=== PATIENT | female | born 1980 | race Caucasian/White ===

== ENCOUNTER 2018-04-07 02:59 | Emergency (ER) | payer OTHER ==
[~2018-04-07] VITALS: Ht 157.5 cm; Wt 81.6 kg
[~2018-04-07 02:59] MED LIST: AMOX500C25 PO; GLU500 PO; NOVN SUBQ
[2018-04-07 03:03] VITALS: BP 162/85
--- NOTE | 2018-04-07 03:03 | NUR ---
PATIENT BIBA TO ER BED 4
--- NOTE | 2018-04-07 03:16 | NUR ---
37 Y/O F BIBA ALS W/C/O FOR ALOC AND LOW BLOOD SUGAR. PER EMS BS WAS 44 ON SCENE, D10 GIVEN X 1. MED HX DM 1, HTN, DIALYSIS. PT ALTER, BUT ORIENTED X 2. BS 155 AT BEDSIDE. ER MADE AWARE.
--- NOTE | 2018-04-07 03:23 | NUR ---
PT ALERT AD ORIENTED X 4, CLEAR SPEECH, DOES NOT RECALL WHAT HAPPENED, STATES ADMINISTER THE USUAL INSULIN 70/30 15 UNITS AFTER DINNER LAST NIGHT AROUND 2200. FAMILY AT BEDSIDE. TUNA SANDWICH AND ORANGE JUICE GIVEN TO PT PER ER MD VERBAL ORDERS.
[2018-04-07] MEDS ORDERED: ACET-9500 PO (03:29)
[2018-04-07] MEDS ORDERED: NIFE60TE8 PO (03:29)
[2018-04-07] MEDS ORDERED: CHLO25TA33 PO (03:29)
[2018-04-07] MEDS ORDERED: ASPI-1173 PO (03:29)
[2018-04-07] MEDS ORDERED: PHO667 PO (03:29)
[2018-04-07] MEDS ORDERED: DOCU-299 PO (03:29)
[2018-04-07] MEDS ORDERED: LOSA50TA1 PO (03:29)
[2018-04-07] MEDS ORDERED: VITD1000 PO (03:29)
[2018-04-07] MEDS ORDERED: HYDR-1098 PO (03:29)
[2018-04-07] MEDS ORDERED: VIT1TABL47 PO (03:29)
[2018-04-07] MEDS ORDERED: INSU10SU8 SUBQ (03:29)
[2018-04-07] MEDS ORDERED: ATOR20TA PO (03:29)
[2018-04-07] MEDS ORDERED: FURO-572 PO (03:29)
[2018-04-07] MEDS ORDERED: MULT-1469 PO (03:29)
[2018-04-07] MEDS ORDERED: METO100T14 PO (03:29)
[2018-04-07 03:30] LABS: ANION GAP 22.8 (8-16); CARBON DIOXIDE 26.3 mmol/L (21-32); POTASSIUM 5.1 mmol/L (3.5-5.1)
[2018-04-07 03:37] LABS: CREATININE 12.8 mg/dL (0.6-1.3)
--- NOTE | 2018-04-07 03:41 | NUR ---
PT RESTING IN BED, FAMILY AT BEDSIDE, NO S/S OF DISTRESS NOTED AT THE MOMENT. WILL CONT TO MONITOR.
[2018-04-07] MEDS ORDERED: SODIUM POLYSTYRENE 15 GM/60 ML UDBTL PO ONE (03:45)
[2018-04-07 03:57] VITALS: BP 149/90
--- NOTE | 2018-04-07 03:58 | NUR ---
Patient discharged with v/s stable. Written and verbal after care instructions given and explained. Patient verbalized understanding. Wheel Chair Assisted with by EMT. All questions addressed prior to discharge. Advised to follow up with PMD OR RETURN TO ER IF CONDITION WORSENS.
== END 2018-04-07 03:53 | disposition home or self-care (01) ==
LOC: MED 02:59
DX: E11.649 Type 2 diabetes mellitus with hypoglycemia without coma (principal); I12.0 Hypertensive chronic kidney disease with stage 5 chronic kidney disease or end stage renal disease; N18.6 End stage renal disease; E11.22 Type 2 diabetes mellitus with diabetic chronic kidney disease; Z99.2 Dependence on renal dialysis; Z79.899 Other long term (current) drug therapy; Z79.4 Long term (current) use of insulin
CPT/HCPCS: 36415; 80048; 93005; 99285

== ENCOUNTER 2018-05-10 23:35 | Emergency (ER) | payer OTHER ==
[~2018-05-10] VITALS: Ht 157.5 cm; Wt 83.9 kg
[~2018-05-10 23:35] MED LIST changes: +ACET-9500 PO; -AMOX500C25 PO; +ASPI-1173 PO; +ATOR20TA PO; +CHLO25TA33 PO; +DOCU-299 PO; +FURO-572 PO; -GLU500 PO; +HYDR-1098 PO; +INSU10SU8 SUBQ; +LOSA50TA1 PO; +METO100T14 PO; +MULT-1469 PO; +NIFE60TE8 PO; -NOVN SUBQ; +PHO667 PO; +VIT1TABL47 PO; +VITD1000 PO
[2018-05-10 23:47] VITALS: BP 185/94
--- NOTE | 2018-05-10 23:50 | NUR ---
TO BED # 4 VIA W/C, REPORT GIVEN TO JEREMY KAY
--- NOTE | 2018-05-11 | NUR ---
PT C/O LOW BLOOD SUGAR , SHE WAS GIVEN WATER WITH SUGAR 30 MINUTES AGO, BS NOW 98 MG/D, DENIES N/V/D; SKIN IS INTACT, PINK/WARM/DRY; AAOX4, PERRL, WITH EVEN AND STEADY GAIT; LUNGS CLEAR BL, BREATHING UNLABORED; HR EVEN AND REGULAR, BL PERIPHERAL PULSES PRESENT; BS ACTIVE X4, NO TENDERNESS TO PALPATION, NO HEPATOSPLENOMEGALLY PALPATED, RESONANT TO PERCUSSION; PT DENIES ANY FEVER, CP, SOB, OR COUGH AT THIS TIME; PT STATES 0/10 PAIN AT THIS TIME; VSS; PATIENT POSITIONED FOR COMFORT; HOB ELEVATED; BEDRAILS UP X2; BED DOWN.
[2018-05-11 01:06] VITALS: BP 175/98
--- NOTE | 2018-05-11 01:06 | NUR ---
Patient discharged with v/s stable. Written and verbal after care instructions given and explained. Patient verbalized understanding. Ambulatory with steady gait. All questions addressed prior to discharge. Advised to follow up with PMD.
== END 2018-05-11 01:06 | disposition home or self-care (01) ==
LOC: MED 23:35
DX: E11.649 Type 2 diabetes mellitus with hypoglycemia without coma (principal); R53.1 Weakness; I10 Essential (primary) hypertension; Z79.4 Long term (current) use of insulin; Z79.82 Long term (current) use of aspirin; Z79.899 Other long term (current) drug therapy
CPT/HCPCS: 82948; 99283

== ENCOUNTER 2018-05-11 11:32 | Inpatient (IN) | payer OTHER ==
[~2018-05-11] VITALS: Ht 157.5 cm; Wt 79.8 kg
[2018-05-11 11:35] VITALS: BP 171/81
--- NOTE | 2018-05-11 11:49 | NUR ---
PATIENT WHEELCHAIR ASSISTED TO BED 5.
--- NOTE | 2018-05-11 11:55 | NUR ---
PT. CAME INTO THE ED DUE TO ABD PAIN SINCE 99 THIS MORNING. PT STATES " THIS MORNING MY STOMACH HURTS A LOT AND I HAVE HAD NAUSEA AND VOMITING AND DIAHRRHEA". 07/29 PAIN IN LOWER ABD DESCRIBED SHARP AND RADIATING ALL OVER ABD. ABD IS ROUND AND SOFT AND TENDER TO TOUCH. N/V/D SINCE 99 THIS MORNING. NO FEVER. PT. HAS R UPPER CHEST DIALYSIS SHUNT PRESENT. PT. IS AWAKE AND ABLE TO ANSWER QUESTIONS. PT HAS DIALYSIS , , AND FRIDAY. FAMILY MEMBER AT BEDSIDE. WILL CONTINUE TO MONITOR. ER MD NOTIFIED. SAFETY PRECAUTIONS IMPLEMENTED.
[2018-05-11] MEDS ORDERED: PROMETHAZINE 25 MG/ML VIAL IM ONE (12:35)
[2018-05-11] MEDS ORDERED: MORPHINE SULFATE 4 MG/ML SYR IVP ONE (12:35)
[2018-05-11] MEDS ORDERED: ONDANSETRON 4 MG/2 ML VIAL IVP ONE ×2 (12:35→14:30)
--- NOTE | 2018-05-11 12:59 | NUR ---
PT.UNABLE TO PROVIDE URINE SAMPLE, PT. STATES I DO NOT PEE I AM A DIALYSIS PATIENT. ER MD SALAZAR NOTIFIED.
--- NOTE | 2018-05-11 13:08 | NUR ---
ULTRASOUND AT BEDSIDE.
[2018-05-11 13:31] LABS: WHITE BLOOD COUNT (AUTO) 12.9 K/uL (4.8-10.8)
[2018-05-11 13:32] LABS: BASOPHILS % (AUTO) 1.8 % (0.0-2.0); EOSINOPHILS % (AUTO) 1.4 % (0.0-4.0); HEMATOCRIT 38.9 % (36-48); HEMOGLOBIN 12.7 g/dL (12.0-16.0); LYMPHOCYTES # (AUTO) 1.1 K/uL (2.5-16.5); LYMPHOCYTES % (AUTO) 8.9 % (20.5-51.1); MEAN CORPUSCULAR HEMOGLOBIN 30 pg (27-31); MEAN CORPUSCULAR HGB CONC 33 g/dL (33-37); MEAN CORPUSCULAR VOLUME 91.9 fL (80-94); NEUTROPHILS # (AUTO) 10.9 K/uL (1.8-7.7); NEUTROPHILS % (AUTO) 83.9 % (42.2-75.2); PLATELET COUNT (AUTO) 237 K/uL (140-450); RED BLOOD CELL COUNT(AUTO) 4.23 MIL/uL (4.20-5.40); RED CELL DISTRIBUTION WIDTH 17.3 % (11.6-13.7)
[2018-05-11 13:33] LABS: BASOPHILS # (AUTO) 0.2 K/uL (0.00-0.22); EOSINOPHILS # (AUTO) 0.2 K/uL (0-0.4); MONOCYTES # (AUTO) 0.5 K/uL (0.8-1.0)
[2018-05-11 13:41] LABS: ACETONE, SERUM NEGATIVE (NEGATIVE)
[2018-05-11 13:54] LABS: MAGNESIUM 2.8 mg/dL (1.8-2.4)
[2018-05-11 14:13] LABS: ALBUMIN 4.1 g/dL (3.4-5.0); ANION GAP 25.3 (8-16); CARBON DIOXIDE 21.9 mmol/L (21-32); TOTAL BILIRUBIN 0.3 mg/dL (0.0-1.0)
--- NOTE | 2018-05-11 14:20 | NUR ---
ARLENE FROM LAB CALLED TO REPORT CRITICAL LAB OF K:6.2, CREATININE:11.9, BUN: 39
[2018-05-11 14:21] LABS: CREATININE 11.9 mg/dL (0.6-1.3); POTASSIUM 6.2 mmol/L (3.5-5.1)
[2018-05-11] MEDS ORDERED: DEXTROSE 50% 50 ML SYR IVP ONE (14:30)
[2018-05-11] MEDS ORDERED: SODIUM POLYSTYRENE 15 GM/60 ML UDBTL PR ONE (14:30)
[2018-05-11] MEDS ORDERED: CALCIUM GLUCONATE 10% 1000 MG/10 ML VIAL IVP ONE (14:30)
[2018-05-11] MEDS ORDERED: INSULIN REGULAR, HUMAN 100 UNIT/ML VIAL IVP ONE (14:30)
[2018-05-11] MEDS ORDERED: ALBUTEROL 0.083% 2.5 MG/3 ML NEBU INH ONE (14:30)
[2018-05-11] MEDS ORDERED: SODIUM BICARBONATE 8.4% PFS 50 MEQ/50 ML SYR IVP ONE (14:30)
[2018-05-11] MEDS ORDERED: CALCIUM CHLORIDE 10% 100 MG/ML SYR IVP ONE (14:50)
[2018-05-11] MEDS ORDERED: fentaNYL 0.05 MG/ML VIAL IVP ONE (15:30)
[2018-05-11] MEDS ORDERED: METOCLOPRAMIDE 10 MG/2 ML INJ VIAL IVP ONE (15:30)
[2018-05-11] MEDS ORDERED: LORazepam 2 MG/ML VIAL IVP PRN (15:35)
[2018-05-11] MEDS ORDERED: ACETAMINOPHEN 325 MG TAB PO PRN (15:35)
--- NOTE | 2018-05-11 16:02 | NUR ---
PT. RESTING COMFORTABLY IN BED , RR EVEN AND UNLABORED. MOTHER AND FAMILY MEMBER AT BEDSIDE. BED IN LOWEST POSITION WILL CONTINUE TO MONITOR.
--- NOTE | 2018-05-11 16:36 | NUR ---
Patient will be admitted to care of DR. LORENZO . Admited to ICU. Will go to room #2 . Belongings list completed. Report to RAHUL ANDRE .
--- NOTE | 2018-05-11 16:36 | NUR ---
RECEIVED REPORT FROM CUSTOMER DEVELOPMENT MANAGER FOR CONTINUITY OF CARE. PATIENT IS AAOX4, ABLE TO FOLLOW SIMPLE COMMANDS AND MAKE NEEDS KNOWN. PATIENT HAS PERIPHERAL IV SITE TO LEFT AC, 20 GAUGE AND RIGHT UPPER CHEST SHUNT FOR DIALYSIS. SHE IS ON ROOM AIR, ST ON MONITOR. DENIES ANY PAIN OR NAUSEA AT THIS TIME. HOB IS IN SEMI-CARABALLO POSITION, NO SIGNS OF DISTRESS NOTED AT THIS TIME. CALL LIGHT WITHIN REACH, WILL CONTINUE TO MONITOR.
[2018-05-11] MEDS ORDERED: NON-FORMULARY ITEM (Hydralazine HCl (Hydralazine Hcl) 25 MG) PO SCH (17:00)
[2018-05-11] MEDS: hydrALAZINE 25 MG TAB PO SCH (17:25)
[2018-05-11] MEDS ORDERED: metroNIDAZOLE 500 MG/NS PREMIX 100 ML IV SCH (17:29)
[2018-05-11] MEDS ORDERED: CIPROFLOXACIN 250 MG TAB PO SCH (17:30)
--- NOTE | 2018-05-11 17:45 | NUR ---
DR. LORENZO AT BEDSIDE, SEEN AND EXAMINED PATIENT. WILL FOLLOW UP WITH ORDERS. ORDER FOR FNS, WOUND CONSULTS AND WOUND CULTURE OBTAINED.
--- NOTE | 2018-05-11 17:50 | NUR ---
DR POZO CALLED, UPDATED OF PATIENT'S STATUS. HE STATED HE WILL COME BY LATER TO SEE THE PATIENT.
[2018-05-11] MEDS ORDERED: DEXTROSE 50% 50 ML SYR IVP PRN (18:30)
--- NOTE | 2018-05-11 18:42 | NUR ---
DR. POZO AT BEDSIDE SEEN AND EXAMINED PATIENT. WILL FOLLOW UP WITH ORDERS.
--- NOTE | 2018-05-11 19:04 | NUR ---
ENDORSED BEDSIDE REPORT FOR CONTINUITY OF CARE, PATIENT PRESENTS NO SIGNS OF DISTRESS AT THIS TIME.
--- NOTE | 2018-05-11 19:31 | NUR ---
RECEIVED PT FROM DAY NURSE, NO ACUTE DISTRESS. WILL CONTINUE TO MONITOR.
--- NOTE | 2018-05-11 19:32 | NUR ---
PT AWAKE ASLEEP AROUSABLE IN BED. PT AOX4 NO S/S OF DISTRESS NOTED. PT DENIES PAIN N/V @ THIS TIME. LUNGS CLEAR TO AUSCULTATION. S1 S2 NO EDEMA NOTED. +2 BILATERAL UPPER AND LOWER EXTREMITIES. R UPPER CHEST HD CATH PRESENT DRESSING CDI. ABD SOFT NON DISTENDED. PT ANURIC. SKIN NON INTACT, WOUND TO L OTE PRESENT WITH DRESSING CDI. IV TO L AC 20G SL PATENT. NO ACUTE DISTRESS NOTED. WILL CONTINUE TO MONITOR.
[2018-05-11 20:00] VITALS: BP 187/90
[2018-05-11] MEDS: METOPROLOL 50 MG TAB PO SCH (20:21)
[2018-05-11] MEDS ORDERED: ONDANSETRON 4 MG/2 ML VIAL IVP PRN (20:25)
[2018-05-11] MEDS: BLOOD GLUCOSE MONITORING 1 DEV DEV FS SCH (21:18)
[2018-05-11] MEDS: cloNIDine 0.1 MG TAB PO PRN (21:19)
[2018-05-11] MEDS: INSULIN LISPRO SLIDING SCALE 100 UNITS/ML VIAL SUBQ PRN (21:22)
--- NOTE | 2018-05-11 22:00 | NUR ---
PT HELPED UP TO BEDSIDE SOUMYA WILL CONTINUE TO MONITOR
[2018-05-12] VITALS (8 sets, daily range): BP systolic 117–169; BP diastolic 71–89
--- NOTE | 2018-05-12 | NUR ---
PT ASLEEP AROUSABLE NO S/S OF DISTRESS NOTED. WILL CONTINUE TO OBSERVE
[2018-05-12] MEDS: cloNIDine 0.1 MG TAB PO PRN ×2 (00:06→05:51)
--- NOTE | 2018-05-12 02:00 | NUR ---
PT HAD X1 LIQUID STOOL, PT HAD BATH, LINEN CHANGED.
--- NOTE | 2018-05-12 04:00 | NUR ---
X1 LARGE LIQUID STOOL, DARK BROWN IN COLOR. WILL CONTINUE TO MONITOR
[2018-05-12] MEDS: HYDROcodone/APAP 5/325 MG 1 TAB TAB PO PRN ×4 (04:07→21:30)
[2018-05-12] MEDS: BLOOD GLUCOSE MONITORING 1 DEV DEV FS SCH ×4 (06:39→21:29)
[2018-05-12] MEDS: INSULIN LISPRO SLIDING SCALE 100 UNITS/ML VIAL SUBQ PRN ×4 (06:42→21:31)
--- NOTE | 2018-05-12 07:29 | NUR ---
REPORT GIVEN TO DAY SHIFT. ORDERS ENDORSED FOR CONTINUITY OF CARE.
--- NOTE | 2018-05-12 07:29 | NUR ---
RECEIVED REPORT FROM SERVICER COIN MACHINES RN. PT RESTING IN BED AWAKE, VERBAL. SR ON MONITOR. SKIN DRY AND WARM TO TOUCH. PT STATED SHE CAN SEE A LITTLE. LEFT AC 20 G, INTACT. NO SWELLING AT SITE. LUNGS CLEAR ON AUSCULTATION. ABDOMEN SOFT ROUND AND NON-TENDER. ACTIVE BOWEL SOUND. DIABETIC FOOT ULCER NOTED ON LEFT GREAT TOE, COVERED WITH DRESSING. INTACT DRESSING. NO ACTIVE DRAINAGE AT SITE. TATOOS NOTED ON BACK OF NECK AND LEFT LOWER EXTREMITY. CALL LIGHT WITHIN REACH, BED IN LOW POSITION LOCKED. WILL CONTINUE TO MONITOR.
[2018-05-12] MEDS ORDERED: NON-FORMULARY ITEM (Aspirin (Aspirin EC) 81 MG) PO SCH (09:00)
[2018-05-12] MEDS ORDERED: FOAM DRESSING TP SCH (09:00)
[2018-05-12] MEDS ORDERED: THERAHONEY WOUND DRESSING TP SCH (09:00)
[2018-05-12] MEDS ORDERED: CHLORTHALIDONE 50 MG PO SCH (09:00)
[2018-05-12] MEDS ORDERED: metroNIDAZOLE 500 MG/NS PREMIX 100 ML IV SCH (09:00)
[2018-05-12 09:24] LABS: HEMOGLOBIN 11.8 g/dL (12.0-16.0); RED BLOOD CELL COUNT(AUTO) 3.91 MIL/uL (4.20-5.40)
[2018-05-12 09:25] LABS: HEMATOCRIT 35.9 % (36-48); MEAN CORPUSCULAR VOLUME 91.9 fL (80-94)
[2018-05-12 09:26] LABS: MEAN CORPUSCULAR HEMOGLOBIN 30 pg (27-31); MEAN CORPUSCULAR HGB CONC 33 g/dL (33-37); PLATELET COUNT (AUTO) 212 K/uL (140-450); RED CELL DISTRIBUTION WIDTH 18.2 % (11.6-13.7)
--- NOTE | 2018-05-12 10:15 | NUR ---
PT ON DIALYSIS. NO ACUTE DISTRESS NOTED. NO CHANGE IN LOC. HELD ALL ANTIHYPERTENSIVE MEDICATIONS INCLUDING LASIX AND METRONIDAZOLE PER DIALYSIS NURSE AT THIS TIME. MEDICINES WILL BE ADMINISTERED AFTER COMPLETING DIALYSIS.
[2018-05-12] MEDS: ECOTRIN 81 MG TABEC PO SCH (10:21)
--- NOTE | 2018-05-12 10:26 | NUR ---
PATIENT HAS BEEN SCREENED AND CATEGORIZED HIGH NUTRITION RISK. PATIENT WILL BE SEEN WITHIN 1-2 DAYS OF ADMISSION. 05/12/18 05/13/[address]
[2018-05-12] MEDS ORDERED: PROBIOTIC SCREEN 1 EA MISC MC PRN (11:00)
[2018-05-12 11:37] LABS: ANION GAP 18.5 (8-16); CARBON DIOXIDE 25.9 mmol/L (21-32); POTASSIUM 5.4 mmol/L (3.5-5.1); TOTAL BILIRUBIN 0.2 mg/dL (0.0-1.0)
--- NOTE | 2018-05-12 11:58 | NUR ---
CM NOTE INITIAL REVIEW FAXED TO [facility] [phone] FARHANA # [phone]
[2018-05-12 12:14] LABS: CREATININE 14.1 mg/dL (0.6-1.3)
[2018-05-12] MEDS: hydrALAZINE 25 MG TAB PO SCH ×3 (13:00→17:29)
[2018-05-12] MEDS ORDERED: CHLORTHALIDONE 50 MG TAB PO SCH (13:00)
[2018-05-12] MEDS ORDERED: HYDRAGUARD CREAM TP SCH (13:00)
[2018-05-12] MEDS: NIFEdipine 60 MG TABER PO SCH (13:23)
[2018-05-12] MEDS: LOSARTAN 50 MG TAB PO SCH (13:24)
[2018-05-12] MEDS: FUROSEMIDE 20 MG TAB PO SCH (13:25)
[2018-05-12] MEDS: METOPROLOL 50 MG TAB PO SCH ×2 (13:25→21:30)
--- NOTE | 2018-05-12 13:30 | NUR ---
ADMINISTERED SCHEDULED MEDICATION INCLUDING 0900 AM ANTIHYPERTENSIVE MEDICATION. PT TOLERATING WELL. WILL CONTINUE TO MONITOR.
[2018-05-12 13:42] LABS: LYMPHOCYTES % (MANUAL) 12 % (20-46)
[2018-05-12 13:43] LABS: MONOCYTES % (MANUAL) 7 % (5-12)
--- NOTE | 2018-05-12 18:50 | NUR ---
PT RESTING IN BED COMFORTABLY. NO ACUTE DISTRESS NOTED. NO CHANGE IN LOC. WILL CONTINUE TO MONITOR.
--- NOTE | 2018-05-12 19:20 | NUR ---
RECEIVED REPORT FROM MORNING SHIFT RAHUL MELARA. PATIENT AAO X 4, VERBALLY RESPONSIVE, ABLE TO MAKE NEEDS KNOWN. BILATERAL LUNGS SOUND CLEAR, ON ROOM O2 SAT 95% NOTED. NO ACUTE DISTRESS NOTED. SR ON MONITOR.PERIPHERAL IV LINE TO LEFT AC 20 G, INTACT AND PATENT. ABDOMEN SOFT ROUND AND NON-TENDER. ACTIVE BOWEL SOUND PRESENT TO ALL 4 QUADS. SKIN IS WARM TO TOUCH. DIABETIC FOOT ULCER TO LEFT GREAT TOE, COVERED WITH DRESSING. DENIES PAIN OR DISCOMFORT AT THIS TIME. HOB ELEVATED, BED IN LOW POSITION. CALL LIGHT WITHIN REACH. WILL CONTINUE TO MONITOR.
--- NOTE | 2018-05-12 19:35 | NUR ---
REPORT GIVEN TO PSYCHOLOGICAL EXAMINER RN FOR CONTINUITY OF CARE. PT ON STABLE CONDITION.
[2018-05-12] MEDS ORDERED: CIPROFLOXACIN 250 MG TAB PO SCH (21:00)
--- NOTE | 2018-05-12 21:30 | NUR ---
ADMINISTERED SCHEDULED ANTIHYPERTENSIVE MED AND PAIN MEDICATION AT THIS TIME. PATIENT COMPLAINED ABOUT ABDOMINAL CRAMPING PAIN 04/28. TOLERATED WELL. WILL CONTINUE TO MONITOR.
--- NOTE | 2018-05-12 23:00 | NUR ---
PATIENT IN ASLEEP, AROUSABLE TO VOICE, NO ACUTE DISTRESS NOTED. O2 SAT 88%~90% NOTED, APPLIED O2 2L/M VIA NC. DENIES PAIN AT THIS TIME.
[2018-05-13] VITALS (7 sets, daily range): BP systolic 142–164; BP diastolic 75–86
--- NOTE | 2018-05-13 01:00 | NUR ---
PATIENT IN ASLEEP AT THIS TIME, NO ACUTE DISTRESS NOTED. DENIES PAIN. WILL CONTINUE TO MONITOR.
--- NOTE | 2018-05-13 03:00 | NUR ---
PATIENT IN SLEEP, AROUSABLE TO VOICE. DENIES PAIN. NO ACUTE DISTRESS NOTED. WILL CONTINUE TO MONITOR.
--- NOTE | 2018-05-13 05:30 | NUR ---
NO ACUTE DISTRESS NOTED. DENIES PAIN AT THIS TIME. BP 150'S/ 80'S NOTED. SR ON THE MONITOR.
[2018-05-13] MEDS: HYDROcodone/APAP 5/325 MG 1 TAB TAB PO PRN (07:21)
--- NOTE | 2018-05-13 07:21 | NUR ---
REPORT GIVEN TO MORNING SHIFT NURSE FOR CONTINUITY OF CARE.
--- NOTE | 2018-05-13 07:30 | NUR ---
RECEIVED PT FROM PM NURSE. PT AWAKE, ALERT. ON O2 NC 2L/MIN. NO S/S OF RESPIRATORY DISTRESS NOTED. BEDSIDE MONITOR SHOWS SR, PT UNABLE TO SEE CLEARLY DUE TO DM. PT HAS IV TO LEFT AC # 20, SALINE LOCKED. PT ALSO HAS PERMA CATH TO RIGHT UPPER CHEST FOR HD. PT ABLE TO AMBULATE TO BEDSIDE COMMODE, CALL LIGHT IN REACH, WILL CONTINUE TO MONITOR.
[2018-05-13] MEDS: INSULIN LISPRO SLIDING SCALE 100 UNITS/ML VIAL SUBQ PRN ×2 (07:47→12:00)
[2018-05-13] MEDS: BLOOD GLUCOSE MONITORING 1 DEV DEV FS SCH ×2 (07:47→11:54)
--- NOTE | 2018-05-13 08:30 | NUR ---
PT AMBULATED TO BEDSIDE COMMODE WITHOUT ACCIDENT.
[2018-05-13] MEDS: NIFEdipine 60 MG TABER PO SCH (08:55)
[2018-05-13] MEDS: hydrALAZINE 25 MG TAB PO SCH (08:56)
[2018-05-13] MEDS: ECOTRIN 81 MG TABEC PO SCH (08:57)
[2018-05-13] MEDS: FUROSEMIDE 20 MG TAB PO SCH (08:58)
[2018-05-13] MEDS: LOSARTAN 50 MG TAB PO SCH (08:58)
[2018-05-13] MEDS: METOPROLOL 50 MG TAB PO SCH (08:59)
[2018-05-13] MEDS ORDERED: CHLORTHALIDONE 50 MG TAB PO SCH (09:00)
[2018-05-13] MEDS ORDERED: LACTOBACILLUS RHAMNOSUS GG 1 EACH CAP PO SCH (09:00)
[2018-05-13] MEDS ORDERED: ACET-9525 PO (09:04)
[2018-05-13 09:22] LABS: HEPATITIS A ANTIBODY IGM Negative (Negative); HEPATITIS B CORE AB TOTAL Negative (Negative); HEPATITIS B SURFACE ANTIBODY Non Reactive (.); HEPATITIS B SURFACE ANTIGEN Negative (Negative)
[2018-05-13 09:52] LABS: HEMATOCRIT 31.5 % (36-48); HEMOGLOBIN 10.1 g/dL (12.0-16.0); MEAN CORPUSCULAR HEMOGLOBIN 30 pg (27-31); MEAN CORPUSCULAR HGB CONC 32 g/dL (33-37); MEAN CORPUSCULAR VOLUME 92.2 fL (80-94); NEUTROPHILS % (AUTO) 80.6 % (42.2-75.2); PLATELET COUNT (AUTO) 167 K/uL (140-450); RED BLOOD CELL COUNT(AUTO) 3.41 MIL/uL (4.20-5.40); RED CELL DISTRIBUTION WIDTH 17.7 % (11.6-13.7); WHITE BLOOD COUNT (AUTO) 14.3 K/uL (4.8-10.8)
[2018-05-13 09:53] LABS: BASOPHILS % (AUTO) 0.7 % (0.0-2.0); EOSINOPHILS % (AUTO) 3.3 % (0.0-4.0); LYMPHOCYTES % (AUTO) 9.3 % (20.5-51.1); MONOCYTES % (AUTO) 6.1 % (1.7-9.3)
[2018-05-13 10:23] LABS: ALBUMIN 2.5 g/dL (3.4-5.0); ANION GAP 16.7 (8-16); CARBON DIOXIDE 25.9 mmol/L (21-32); POTASSIUM 4.6 mmol/L (3.5-5.1); TOTAL BILIRUBIN 0.2 mg/dL (0.0-1.0)
[2018-05-13 10:26] LABS: CREATININE 11.1 mg/dL (0.6-1.3)
--- NOTE | 2018-05-13 10:41 | NUR ---
PAGEKathy CHEN FOR CREATININE 11.1, NO NEW ORDER RECEIVED, PT HAS HD TOMORROW. Addendum: 05/13/18 at 1352 by Leticia Selby RN DR. CHATA RG AWARE HEPATITIS A Ab POSITIVE .
[2018-05-13] MEDS: cloNIDine 0.1 MG TAB PO PRN (11:39)
--- NOTE | 2018-05-13 11:50 | NUR ---
WOUND CARE EVALUATION NOTE REASON FOR EVALUATION: DIABETIC ULCER SKIN ASSESSMENT DONE ON THIS 37 Y/O FEMALE PATIENT FROM HOME TO [facility], WITH INITIAL DIAGNOSIS OF ABDOMINAL PAIN. PAST MEDICAL HX INCLUDES TYPE 1 DM, HTN, ESRD ON HD. ALL ABOVE INFORMATION WAS OBTAINED FROM THE PT. AND ADMISSION H&P. PT. IS AAX4. LABS ARE WBC 14.3, H/H 10.1/31.5, GLUCOSE 203 AND ALBUMIN 2.5. PATIENT IS WELL HYDRATE, AMBULATED TO BEDSIDE COMMODE. SKIN WARN AND DRY, BLE HAIR GROWTH, BILATERAL PEDAL PULSES PRESENT AND STRONG. NAILS SHORT AND CLEAN WITH NAIL BHUTANESE ON. INITIAL PLAN OF CARE AND FOOT/ WOUND CARE EDUCATION TEACH TO PT. AND PT VERBALIZES UNDERSTANDING. PLAN OF CARE DISCUSSED WITH PRIMARY RN. PT. WAS INSTRUCTED TO FOLLOW UP OUTPATIENT PODIATRY SERVICE REGULAR. ALL RISKS AND BENEFITS INCLUDING DM COMPLICATIONS EXPLAIN TO PT. PT. VERBALIZES UNDERSTANDING. INTEGUMENTARY: -LEFT LATERAL HALLUX DRY SCAB 0.5X0.5 CM, WITH SURROUNDING AREA PALE PINK/WHITE, NO DRAINAGE, NO ODOR, KIT OF PAIN. -LEFT HALLUX PLANTAR AREA DIABETIC ULCER, 1X0.5 CM BROWN THIN SCAB, WOUND EDGE WITH CIRCULAR THIN CALLUS COVER ENTIRE AREA RECOMMENDATIONS: -PAINT LEFT HALLUX AND LEFT FOOT PLANTAR AREAS WITH BETADINE SOLUTION, BIDWC AND LAM -KEEP INTERSPACES TOES AREA DRY AND CLEAN AT ALL TIMES -FOOT CARE AND EXAM BILATERAL FEET DAILY RECOMMENDATIONS DISCUSSED WITH PRIMARY RN. PLEASE CONTACT WOUND CARE NURSE FOR ANY CONCERNS, QUESTIONS AND CHANGES IN SKIN CONDITION.
--- NOTE | 2018-05-13 12:00 | NUR ---
DR. LORENZO NOTIFIED HEPATITIS A Ab positive.
--- NOTE | 2018-05-13 13:00 | NUR ---
PT'S UNCLE AND SON AT BEDSIDE, PT AWAKE, ALERT. ROOM AIR, NO S/S OF RESPIRATORY DISTRESS NOTED. PT SIGNED DISCHARGE PAPER. ALL PERSONAL BELONGING WITH PT.TOOK BACK HOME MEDICATION WITH PT'S UNCLE IN PHARMACY AND GAVE IT TO PT. PT STATED UNDERSTANDING SHE WILL HAVE DIALYSIS TOMORROW. ID BAND REMOVED, TRANSPORT PT TO PARKING LOT BY WHEEL CHAIR, PT LEFT WITH FAMILY IN A STABLE CONDITION.
[2018-05-13 13:03] LABS: LACTATE DEHYDROGENASE 329 IU/L (119-226)
[2018-05-15 06:13] LABS: LD1 FRACTION 21 % (17-32); LD2 FRACTION 38 % (25-40); LD3 FRACTION 26 % (17-27); LD4 FRACTION 8 % (5-13); LD5 FRACTION 7 % (4-20)
== END 2018-05-13 13:00 | disposition home or self-care (01) | DRG 245 ==
LOC: MED 11:32 → MIC 16:12
PROVIDERS: ADMIT Hospitalist; ATTEND Hospitalist
PROC: 5A1D70Z Performance of Urinary Filtration, Intermittent, Less than 6 Hours Per Day (ICD-10-PCS; principal; 2018-05-12)
DX: K51.00 Ulcerative (chronic) pancolitis without complications (principal); N18.6 End stage renal disease; E10.21 Type 1 diabetes mellitus with diabetic nephropathy; I12.0 Hypertensive chronic kidney disease with stage 5 chronic kidney disease or end stage renal disease; R65.10 Systemic inflammatory response syndrome (SIRS) of non-infectious origin without acute organ dysfunction; K52.9 Noninfective gastroenteritis and colitis, unspecified; E10.40 Type 1 diabetes mellitus with diabetic neuropathy, unspecified; E10.319 Type 1 diabetes mellitus with unspecified diabetic retinopathy without macular edema; E87.5 Hyperkalemia; E78.00 Pure hypercholesterolemia, unspecified; E86.0 Dehydration; N83.201 Unspecified ovarian cyst, right side; E10.22 Type 1 diabetes mellitus with diabetic chronic kidney disease; E87.6 Hypokalemia; E10.621 Type 1 diabetes mellitus with foot ulcer; L97.509 Non-pressure chronic ulcer of other part of unspecified foot with unspecified severity; Z79.4 Long term (current) use of insulin; Z79.82 Long term (current) use of aspirin; Z79.899 Other long term (current) drug therapy; Z99.2 Dependence on renal dialysis
CPT/HCPCS: 36415; 76856; 80053; 82009; 82150; 82948; 83036; 83605; 83625; 83690; 83735; 84703; 85025; 86704; 86706; 86708; 86709; 86803; 87045; 87070; 87075; 87081; 87205; 87340; 89055; 96374; 96375; 96376; 99285; J1644; J1815; J2270; J2405; J2550; J2765; J3010; J3490; J7030; J7613; Q0092

== ENCOUNTER 2018-05-17 13:40 | Emergency (ER) | payer OTHER ==
[~2018-05-17] VITALS: Ht 157.5 cm; Wt 80.3 kg
[~2018-05-17 13:40] MED LIST changes: +ACET-9525 PO
[2018-05-17 13:45] VITALS: BP 150/67
--- NOTE | 2018-05-17 13:51 | NUR ---
PT TAKEN TO BED 9 AT THIS TIME VIA W/C.
--- NOTE | 2018-05-17 13:52 | NUR ---
37/F BIB MOTHER C/O DIZZY & HYPOGLYCEMIA ;ACCU CHECK 35. HX---DM, HTN, ESRD WITH HEMO DIALYSIS ON SAT ,TUE, VENANCIO, ASTRID CATHETER RIGHT CHEST, BLIND BOTH EYES.
[2018-05-17] MEDS ORDERED: DEXTROSE 50% 50 ML SYR IVP ONE ×3 (14:01→14:10)
--- NOTE | 2018-05-17 14:10 | NUR ---
GOT 2 BOTTLES OF JUICES & DEXTROSE 5% 50 ML : ACCU CHECK 178 MG% NOTIFIED DR SALAZAR. Addendum: 05/17/18 at 1414 by [email or web address] PT ALERT, ORIENTED. MOTHER AT BEDSIDE. Addendum: 05/17/18 at 1454 by [email or web address] HOLD D50% DEXTROSE 50 CC [address] DOSE PER DR SALAZAR ORDER.
[2018-05-17 14:49] LABS: BASOPHILS # (AUTO) 0.1 K/uL (0.00-0.22); BASOPHILS % (AUTO) 1.2 % (0.0-2.0); EOSINOPHILS # (AUTO) 0.8 K/uL (0-0.4); EOSINOPHILS % (AUTO) 7.9 % (0.0-4.0); HEMATOCRIT 32.4 % (36-48); HEMOGLOBIN 10.5 g/dL (12.0-16.0); LYMPHOCYTES # (AUTO) 1.7 K/uL (2.5-16.5); LYMPHOCYTES % (AUTO) 16.5 % (20.5-51.1); MEAN CORPUSCULAR HEMOGLOBIN 30 pg (27-31); MEAN CORPUSCULAR HGB CONC 32 g/dL (33-37); MEAN CORPUSCULAR VOLUME 92.2 fL (80-94); MONOCYTES # (AUTO) 0.5 K/uL (0.8-1.0); MONOCYTES % (AUTO) 4.7 % (1.7-9.3); NEUTROPHILS # (AUTO) 7.1 K/uL (1.8-7.7); NEUTROPHILS % (AUTO) 69.7 % (42.2-75.2); PLATELET COUNT (AUTO) 227 K/uL (140-450); RED BLOOD CELL COUNT(AUTO) 3.52 MIL/uL (4.20-5.40); RED CELL DISTRIBUTION WIDTH 17.4 % (11.6-13.7); WHITE BLOOD COUNT (AUTO) 10.1 K/uL (4.8-10.8)
--- NOTE | 2018-05-17 14:53 | NUR ---
Rosey villa in ED - 05/17/18 at [address] SALAZAR INJECTED 1% LIDOCAINE & DID SUTURE 12 TELMA TO LAC WOUND RFA. PT TOLERATED PROCEDURE WELL.
--- NOTE | 2018-05-17 14:53 | NUR ---
Patient appears to be resting comfortably in bed. Vital Signs within normal limits. Respirations even and unlabored.WILL CONTINUE TO MONITOR.
--- NOTE | 2018-05-17 15:00 | NUR ---
PT'S MOTHER MONY ; [phone]
--- NOTE | 2018-05-17 15:15 | NUR ---
Rosey villa in ED - 05/17/18 at 1516 by [email or web address] APPLIED BACITRACINE TO RFA WOUND BY DAMARIS EMERY.
[2018-05-17 15:18] LABS: PROTHROMBIN TIME 10.1 secs (10.8-13.4)
[2018-05-17 15:19] LABS: ALBUMIN 3.3 g/dL (3.4-5.0); ANION GAP 17.8 (8-16); CARBON DIOXIDE 27.5 mmol/L (21-32); POTASSIUM 4.3 mmol/L (3.5-5.1); TOTAL BILIRUBIN 0.2 mg/dL (0.0-1.0)
[2018-05-17 15:21] LABS: CREATININE 9.1 mg/dL (0.6-1.3)
--- NOTE | 2018-05-17 15:34 | NUR ---
TUNA SANDWICHES PROVIDED FOR PT AT THIS TIME. PT ATE 50% OF SANDWICHES.
--- NOTE | 2018-05-17 16:09 | NUR ---
PT STATED" I FEEL MUCH BETTER. I WANT TO GO HOME".
[2018-05-17 17:52] VITALS: BP 159/82
--- NOTE | 2018-05-17 17:52 | NUR ---
Patient discharged with BP 159/82 DENIES VILLANUEVA OR DIZINESS AT THIS TIME. DR SALAZAR MADE AWARE. Written and verbal after care instructions given and explained. Patient verbalized understanding. Ambulatory with steady gait. All questions addressed prior to discharge. Advised to follow up with PMD.
== END 2018-05-17 17:52 | disposition home or self-care (01) ==
LOC: MED 13:40
DX: E11.649 Type 2 diabetes mellitus with hypoglycemia without coma (principal); E11.22 Type 2 diabetes mellitus with diabetic chronic kidney disease; I12.0 Hypertensive chronic kidney disease with stage 5 chronic kidney disease or end stage renal disease; N18.6 End stage renal disease; Z79.84 Long term (current) use of oral hypoglycemic drugs
CPT/HCPCS: 36415; 80053; 82150; 82948; 83036; 83690; 84484; 84703; 85025; 85610; 85730; 93005; 96374; 99285